=== PATIENT | male | born 1990 | race Asian ===

== ENCOUNTER 2016-11-24 22:03 | Emergency (ER) | payer OTHER ==
[~2016-11-24] VITALS: Ht 162.6 cm; Wt 93.0 kg
[~2016-11-24 22:03] MED LIST: ARIP30TA10 PO; BENA20TA48 PO; DIVA500T7 PO; INSU100V19; TRAZ100T15 PO
[2016-11-24 22:15] VITALS: Ht 162.6 cm; Wt 93.0 kg
[2016-11-24] MEDS ORDERED: SOD CHLORIDE 0.9% 1,000 ML IV STA (23:24)
[2016-11-24] MEDS ORDERED: LABETALOL HCL 20MG INJ IV ONE (23:30)
[2016-11-24 23:51] LABS: BASOPHIL # 0.1 10^3/ul (0.0-0.1); BASOPHILS % 0.5 % (0.0-2.0); EOSINOPHILS # 1.5 10^3/ul (0.0-0.5); EOSINOPHILS % 14.4 % (0.0-7.0); HEMATOCRIT 32.2 % (42.0-52.0); HEMOGLOBIN 10.9 g/dl (14.0-18.0); LYMPHOCYTES # 1.6 10^3/ul (0.8-2.9); LYMPHOCYTES % 15.7 % (15.0-51.0); MEAN CORPUSCULAR HEMOGLOBIN 29.3 pg (29.0-33.0); MEAN CORPUSCULAR HGB CONC 33.8 g/dl (32.0-37.0); MEAN CORPUSCULAR VOLUME 86.7 fl (82.0-101.0); MEAN PLATELET VOLUME 7.9 fl (7.4-10.4); MONOCYTE # 1.1 10^3/ul (0.3-0.9); MONOCYTES % 10.8 % (0.0-11.0); NEUTROPHILS % 58.6 % (39.0-77.0); PLATELET COUNT 208 10^3/UL (140-440); RED BLOOD COUNT 3.71 10^6/ul (4.70-6.10); RED CELL DISTRIBUTION WIDTH 13.6 % (11.5-14.5); UNCORRECTED WBC 10.3 10^3/ul (4.8-10.8); WHITE BLOOD COUNT 10.3 10^3/ul (4.8-10.8)
[2016-11-24 23:53] LABS: POTASSIUM 4.2 mmol/L (3.5-5.1)
[2016-11-24 23:55] LABS: CONDITION 1; CREATININE 1.37 mg/dl (0.61-1.24)
[2016-11-24 23:56] LABS: CALCIUM 7.7 mg/dl (8.4-10.2)
[2016-11-25] MEDS ORDERED: SOD CHLORIDE 0.9% 1,000 ML IV STA (00:28)
[2016-11-25] MEDS ORDERED: INSULIN LISPRO 100 UNIT/ML VIAL SC STA (00:28)
[2016-11-25 00:56] LABS: ADD UMIC YES; URINE BILIRUBIN (Dip) NEGATIVE (NEGATIVE); URINE BLOOD (Dip) 3+ (NEGATIVE); URINE COLOR LT. YELLOW (YELLOW); URINE GLUCOSE (Dip) >=1000 % (NEGATIVE); URINE KETONES (Dip) NEGATIVE (NEGATIVE); URINE LEUKOCYTE ESTERASE (Dip) NEGATIVE (NEGATIVE); URINE NITRITE (Dip) NEGATIVE (NEGATIVE); URINE TOTAL PROTEIN (Dip) 2+ (NEGATIVE); URINE UROBILINOGEN (Dip) 0.2 E.U./dL (0.1-1.0)
[2016-11-25 01:02] LABS: SQUAMOUS EPITHELIAL CELL,UR FEW
[2016-11-25] MEDS ORDERED: morphine 4 MG/ML VIAL IV STA (01:33)
--- NOTE | 2016-11-25 03:32 | ERD ---
ER Documentation Chief Complaint Date/Time DATE: 11/25/16 TIME: 03:30 Chief Complaint states BS is high, hearing voices, states "i'm a little suicidal" HPI Patient is a 26-year-old male with bipolar disorder, depression, diabetes, and hypertension who presents saying that he is having "spasms". He said that he has a history of diabetes and also feels like he has swollen feet and arms. He says "I am afraid of tumors". He said the symptoms started 3 months ago. He denies suicidal or homicidal ideation to me. Upon review of old medical records this is the patient's fourth visit to the ER since 2011. Review of the emergency department information exchange shows visits to [facility] as well as [facility]. ROS All systems reviewed and are negative except as per history of present illness. Medications Home Meds Active Scripts Trazodone Hcl* (Trazodone Hcl*) 100 Mg Tablet, 100 MG PO QHS, #10 TAB Prov:EDUARDA ALVARADO MD 12/18/15 Divalproex Sodium* (Depakote*) 500 Mg Tablet.dr, 500 MG PO QHS, #30 TAB Prov:EDUARDA ALVARADO MD 12/18/15 Reported Medications Aripiprazole* (Abilify*) 30 Mg Tablet, 30 MG PO BID 11/11/12 Benazepril Hcl* (Benazepril Hcl*) 20 Mg Tablet, 20 MG PO DAILY 11/11/12 Insulin Glargine,Hum.rec.anlog (Lantus) 100 U/Ml Vial 11/11/12 Allergies Allergies: Coded Allergies: Erythromycin Lactobionate (Verified Allergy, Unknown, 11/24/16) Penicillins (Verified Allergy, Unknown, 11/24/16) PMhx/Soc Anesthesia Reaction: No Hx Neurological Disorder: No Hx Respiratory Disorders: No Hx Cardiac Disorders: No Hx Psychiatric Problems: Yes (BIPOLOR) Hx Miscellaneous Medical Probl: Yes (BIPOLAR, DM,HTN) Hx Alcohol Use: Yes (OFTEN) Hx Substance Use: No Hx Tobacco Use: Yes (1 PACK CIGARETTES/DAY) FmHx Family History: diabetes Physical Exam Vitals Vital Signs Date Time Temp Pulse Resp B/P Pulse Ox O2 Delivery O2 Flow Rate FiO2 11/24/16 22:15 98.1 103 18 194/112 98 Physical Exam Const: No acute distress Head: Atraumatic Eyes: Normal Conjunctiva ENT: Normal External Ears, Nose and Mouth. Neck: Full range of motion..~ No meningismus. Resp: Clear to auscultation bilaterally Cardio: Regular rate and rhythm, no murmurs Abd: Soft, non tender, non distended. Normal bowel sounds Skin: No petechiae or rashes Back: No midline or flank tenderness Ext: No cyanosis, or edema Neur: Awake and alert Psych: Denies suicidal or homicidal ideation at this time Result Diagram: 11/24/165 11/24/16 2315 Results 24 hrs Laboratory Tests Test 11/24/16 00:28 11/24/16 23:15 11/25/16 01:31 11/25/16 02:58 Urine Bilirubin NEGATIVE Urine Clarity CLEAR Urine Color LT. YELLOW Urine Glucose >=1000% Urine Hemoglobin 3+ Urine Ketones NEGATIVE Urine Leukocyte Esterase NEGATIVE Urine Microscopic RBC 10-25/HPF Urine Microscopic WBC 0-2/HPF Urine Nitrite NEGATIVE Urine Specific [place] 1.015 Urine Squamous Epithelial Cells FEW Urine Total Protein 2+ Urine Urobilinogen 0.2 E.U./dL Urine pH 6.5 Anion Gap 10 Basophils # 0.110^3/ul Basophils % 0.5% Blood Urea Nitrogen 28mg/dl Calcium Level 7.7mg/dl Carbon Dioxide Level 26mmol/L Chloride Level 95mmol/L Creatinine 1.37mg/dl Eosinophils # 1.510^3/ul Eosinophils % 14.4% Glucose Level 643mg/dl Hematocrit 32.2% Hemoglobin 10.9g/dl Lymphocytes # 1.610^3/ul Lymphocytes % 15.7% Mean Corpuscular Hemoglobin 29.3pg Mean Corpuscular Hemoglobin Concent 33.8g/dl Mean Corpuscular Volume 86.7fl Mean Platelet Volume 7.9fl Monocytes # 1.110^3/ul Monocytes % 10.8% Neutrophils # 6.010^3/ul Neutrophils % 58.6% Nucleated Red Blood Cells # 0.010^3/ul Nucleated Red Blood Cells % 0.0/100WBC Platelet Count 23888^3/UL Potassium Level 4.2mmol/L Red Blood Count 3.7110^6/ul Red Cell Distribution Width 13.6% Sodium Level 127mmol/L White Blood Count 10.310^3/ul Bedside Glucose > 595mg/dL 324mg/dL Current Medications Medications (Trade) Dose Ordered Sig/Matteo Route PRN Reason Start Time Stop Time Status Last Admin Dose Admin Sodium Chloride (NS) 1,000 ml @ 1,000 mls/hr Q1H STAT IV 11/24/16 23:24 11/25/16 00:23 DC 11/25/16 00:19 Labetalol HCl 20 mg 20 mg ONCE ONCE IV 11/24/16 23:30 11/24/16 23:31 DC 11/25/16 00:20 Sodium Chloride (NS) 1,000 ml @ 1,000 mls/hr Q1H STAT IV 11/25/16 00:28 11/25/16 01:27 DC 11/25/16 00:55 Insulin Human Lispro (Humalog) 20 unit ONCE STAT SC 11/25/16 00:28 11/25/16 00:29 DC 11/25/16 00:56 Morphine Sulfate (morphine) 4 mg ONCE STAT IV 11/25/16 01:33 11/25/16 01:34 DC 11/25/16 02:01 Procedures/MDM Smoking Cessation Therapy: Pt. was lectured for greater than 3 minutes on the health risks of continued smoking and the benefits of cessation. Patient is a 26-year-old male with diabetes and psychiatric disease who presents with hyperglycemia. At this point I doubt suicidal or homicidal ideation. There are no signs of diabetic ketoacidosis. The patient was given fluid resuscitation with 2 L of normal saline and he did get Humalog 20 units subcutaneous. His sugar was 300 on recheck and at this point I feel outpatient management is appropriate. I do not believe he requires admission to the hospital at this time. I doubt DKA or HHNK. At this point the patient will need to follow-up with his primary doctor within 24-48 hours and could return if symptoms worsen. The patient understands the plan and is okay for discharge at this time. Departure Diagnosis: Primary Impression: Anemia Anemia type: unspecified type Qualified Code: D64.9 - Anemia, unspecified type Additional Impressions: Hyponatremia Hyperglycemia Condition: Fair Patient Instructions: Hyperglycemia (High Blood Sugar) Referrals: KEVIN SEGUNDO (PCP) Additional Instructions: Call your primary care doctor TOMORROW for an appointment during the next 1-2 days.See the doctor sooner or return here if your condition worsens before your appointment time. EDUARDA ALVARADO MD Nov 25, 2016 03:32
[2016-11-25 04:00] VITALS: BP 161/107; PULSE 92; RESP 20; TEMP 98.7
== END 2016-11-25 04:00 | disposition home or self-care (01) ==
LOC: E/R 22:03
DX: D64.9 Anemia, unspecified (principal); I10 Essential (primary) hypertension; F17.210 Nicotine dependence, cigarettes, uncomplicated; E87.1 Hypo-osmolality and hyponatremia; E11.65 Type 2 diabetes mellitus with hyperglycemia; Z79.4 Long term (current) use of insulin
CPT/HCPCS: 36415; 80048; 81001; 82962; 85025; 96372; 96374; 96375; 99284; J1815; J2270; J7030; 81003

== ENCOUNTER 2018-07-09 00:26 | Emergency (ER) | END 2018-07-09 05:58 | disposition home or self-care (01) ==